=== PATIENT | male | born 1965 | race Caucasian/White ===

== ENCOUNTER 2022-06-13 15:22 | Emergency (ER) | payer OTHER ==
[~2022-06-13] VITALS: Wt 210.9 kg
[2022-06-13 16:51] LABS: BASO % 0.2 % (0.0-1.0); EOS % 0.1 % (1.0-4.0); HEMATOCRIT 36.8 % (42.0-52.0); LYMPH # 0.7 10*3/uL (1.3-4.4); MEAN CELL VOLUME 90.9 fl (80.0-94.0); MEAN CORPUSCULAR HGB 31.9 pg (27.0-31.0); MEAN CORPUSCULAR HGB CONC 35.1 g/dl (33.0-37.0); MEAN PLATELET VOLUME 10.6 fl (9.6-12.3); MONO # 1.2 10*3/uL (0.1-1.0); MONO % 10.9 % (3.0-9.0); NEUT # 9.2 10*3/uL (2.3-7.9); NEUT % 82.4 % (47.0-73.0); PLATELET COUNT AUTOMATED 119 10*3/uL (130-400); RED BLOOD COUNT 4.05 10*6/uL (4.50-5.90); WHITE BLOOD COUNT 11.1 10*3/uL (4.8-10.8)
[2022-06-13 17:11] LABS: ALKALINE PHOSPHATASE 51 U/L (46-116); BUN 20 mg/dl (9-23); CHLORIDE 100 mmol/L (98-107); POTASSIUM 3.7 mmol/L (3.4-5.1); SGPT/ALT 25 U/L (10-49); TOTAL PROTEIN 6.8 gm/dL (6.0-8.0); URIC ACID 6.3 mg/dL (3.1-9.2)
[2022-06-13] MEDS ORDERED: PREDNISONE50 MG PO (18:19)
== END 2022-06-13 18:30 | disposition home or self-care (01) ==
LOC: ED 15:22
PROVIDERS: Nurse Practitioner Family
DX: M10.071 Idiopathic gout, right ankle and foot (principal); Z20.822 Contact with and (suspected) exposure to COVID-19

== ENCOUNTER 2022-06-16 13:14 | Emergency (ER) | payer OTHER ==
[~2022-06-16] VITALS: Ht 203.2 cm; Wt 206.4 kg
[~2022-06-16 13:14] MED LIST: PREDNISONE50 MG PO
[2022-06-16] MEDS ORDERED: CITALOPRAM20 MG PO (14:51)
[2022-06-16] MEDS ORDERED: ESOMEPRAZOLE MA40 M1 PO (14:52)
[2022-06-16] MEDS ORDERED: FUROSEMIDE20 M1 PO (14:52)
[2022-06-16] MEDS ORDERED: LISINOPRIL40 MG PO (14:52)
[2022-06-16] MEDS ORDERED: DILTIAZEM 24HR360 MG PO (14:52)
[2022-06-16] MEDS ORDERED: DIGOXIN250 MCG PO (14:52)
[2022-06-16] MEDS ORDERED: WARFARIN SOD5 MG PO (14:53)
[2022-06-16] MEDS ORDERED: HYDROCODONE-AC1 EAC1 PO (16:38)
[2022-06-16] MEDS ORDERED: CYCLOBENZAPRINE5 M3 PO (16:38)
== END 2022-06-16 16:48 | disposition home or self-care (01) ==
LOC: ED 13:14
DX: M25.571 Pain in right ankle and joints of right foot (principal)